=== PATIENT | male | born 2000 | race Caucasian/White ===

== ENCOUNTER 2024-04-12 10:29 | Emergency (ER) | payer OTHER, SELFPAY ==
[2024-04-12 10:47] VITALS: BP 140/70
[2024-04-12 11:47] VITALS: BMI 33.9
[2024-04-12] MEDS: TYLENOL 1000 MG PO (12:01)
[2024-04-12 12:21] LABS: % Basophils 0.4 % (0-2); % Eosinophils 0.4 % (0-6); % Immature Granulocytes 0.6 % (0-0.5); % Lymphocytes 10.9 % (20.5-51.1); % Monocytes 8.4 % (1.7-9.3); % Neutrophils 79.3 % (42.2-75.2); Absolute Basophils 0.1 10^3/uL (0-0.2); Absolute Eosinophils 0.1 10^3/uL (0-0.7); Absolute Immature Granulocytes 0.1 10^3/uL (0-0.05); Absolute Lymphocytes 1.9 10^3/uL (1.2-3.4); Absolute Monocytes 1.4 10^3/uL (0.1-0.6); Absolute Neutrophils 13.6 10^3/uL (1.4-6.5); Hematocrit 46.3 % (39.0-52.0); Hemoglobin 16.1 g/dL (13.0-18.0); Mean Corp Hgb Conc. 34.8 g/dL (33.0-37.0); Mean Corpuscular Hgb 30.8 pg (27.0-31.0); Mean Corpuscular Volume 88.7 fL (80.0-94.0); Nucleated Red Blood Cells % 0 % (-); Platelet Count 280 10^3/uL (130-400); Red Blood Cell Count 5.22 10^6/uL (4.70-6.10); Red Cell Dist. Width 12.4 % (11.5-14.5); White Blood Cell Count 17.1 10^3/uL (4.8-10.8)
[2024-04-12 12:46] LABS: ALT (SGPT) 28 U/L (0-50); AST (SGOT) 27 U/L (17-59); Albumin 5.1 g/dl (3.5-5.0); Alkaline Phosphatase 90 U/L (38-126); Blood Urea Nitrogen 12 mg/dl (9-20); Calcium 10.3 mg/dl (8.4-10.2); Carbon Dioxide 25 mmol/L (22-30); Chloride 101 mmol/L (98-107); Estimated Creatinine Clearance > 125 ml/min; Glucose 111 mg/dl (70-99); Sodium 137 mmol/L (135-145); Total Protein 8.3 g/dl (6.3-8.2); eGFR > 60.00
--- NOTE | 2024-04-12 12:56 | ED.GENMED ---
History of Present Illness
General
Chief Complaint: Headache
Time Seen by Provider: 04/12/24 12:08
History of Present Illness
History of Present Illness:
23-year-old previously healthy male presents to the emergency department for evaluation of persistent daily headaches that have been ongoing for the past week. He states he typically wakes up with no headache however the symptoms began shortly
after being awake. This seemed to resolve in the evening regardless of any medication administration. Saw his primary care physician yesterday and was prescribed corticosteroids pack however has not started this yet. He does report tearing and
blurry vision in the left eye associated with a headache. The headache is typically gradual in onset but very severe, currently rated 10 out of 10. Denies any nausea or vomiting. Denies any diplopia.
Review of Systems
Review of Systems
Allergies reviewed?: Yes
All Other Systems: ROS reviewed and negative except as documented in HPI and ROS
Phy Exam
Physical Exam
Physical Exam:
GEN: Well appearing, NAD, WDWN
HEENT: Mild injection of the left sclera/conjunctiva with clear discharge, right conjunctival normal ;oral mucosa moist, no scleral icterus, no nasal congestion
Cardiac: Regular rate and rhythm, no murmur
Lung: No respiratory distress, no tachypnea
MSK: No gross deformity or injuries
Skin: Good color, no pallor or jaundice, no rashes
Neuro: AO x3; CN II-XII grossly intact. (Patient notes diplopia with vertical or inferior gaze however no obvious EOM deficit is appreciated ) ;BUE strength 5/5 in all huber, sensation intact and symmetric. BLE strength 5/5 in all huber, sensation
intact and symmetric
Psych: Calm, cooperative
Course
Orders/Labs/Results
Orders:
Orders
04/12/24 11:55
Acetaminophen [Tylenol] 1,000 mg .ROUTE .STK-MED ONE
04/12/24 11:56
CT Head W/o Iv Contrast Urgent
Comment:
Reason For Exam: headache with left eye visual changes
04/12/24 11:57
Acetaminophen [Tylenol] 1,000 mg PO NOW STA
04/12/24 12:08
CMP [Comprehensive Metabolic Panel] Urgent
04/12/24 12:09
Complete Blood Count/With Diff Urgent
04/12/24 12:55
Magnesium Sulfate 2 Gram/50 ml [Magnesium Sulfate] 2 gram in 50 ml IV NOW
Metoclopramide [Reglan] 10 mg IV NOW STA
04/12/24 13:28
Ketorolac [Toradol] 15 mg IV NOW STA
04/12/24 14:03
Dexamethasone Sod Phosphate [Decadron] 10 mg IV NOW STA
Diphenhydramine [Benadryl] 12.5 mg IV NOW STA
Abnormal Lab Results
04/12/24 04/12/24
12:08 12:09
WBC 17.1 H 10^3/uL
(4.8-10.8)
MPV 11.0 H fL
(7.4-10.4)
Abs Immat Gran (auto) 0.1 H 10^3/uL
(0-0.05)
Absolute Neuts (auto) 13.6 H 10^3/uL
(1.4-6.5)
Absolute Monos (auto) 1.4 H 10^3/uL
(0.1-0.6)
Immature Gran % 0.6 H %
(0-0.5)
Neutrophils % 79.3 H %
(42.2-75.2)
Lymphocytes % 10.9 L %
(20.5-51.1)
Glucose 111 H mg/dl
(70-99)
Calcium 10.3 H mg/dl
(8.4-10.2)
Total Protein 8.3 H g/dl
(6.3-8.2)
Albumin 5.1 H g/dl
(3.5-5.0)
04/12/24 12:09
04/12/24 12:08
Vital Signs
Initial and Last Documented VS:
Initial Vital Signs
Temp Pulse Resp BP Pulse Ox
98.7 F 71 16 140/70 100
04/12/24 10:47 04/12/24 10:47 04/12/24 10:47 04/12/24 10:47 04/12/24 10:47
Last Documented Vital Signs
Temp Pulse Resp BP Pulse Ox
98.7 F 57 16 139/72 100
04/12/24 10:47 04/12/24 14:39 04/12/24 14:39 04/12/24 14:39 04/12/24 14:39
MDM/Problems Addressed
MDM/Problems Addressed:
Patient has no focal neurologic deficits on exam. Headache resolved after administration of a migraine cocktail. He reported resolution of diplopia on vertical gaze after pain was resolved. I did consider whether the patient would need vascular
imaging such as CT angiogram despite his lack of neurologic deficits however presence of severe ethmoid and frontal sinusitis on the ipsilateral side is likely the cause. I suspect the patient is reporting diplopia due to some degree of
inflammatory change around the extraocular muscles that resolved after anti-inflammatory ministration. He is already on steroids prescribed by his primary care physician and will add antibiotics, encourage strict emergency department return with
any worsening symptoms
*Critical Care Note
Total Time (30-74mins, 75-104mins- exclusive of procedures): Not Applicable
ED Attending Note
-
Portions of this chart may have been created with voice recognition software.� Occasional wrong word or��sound alike� substitutions may have occurred due to the inherent limitations of voice recognition software.
Discharge Plan
Departure
Patient Disposition: Home (Routine Discharge)
Date of Disposition: 04/12/24
Time of Disposition: 14:03
Patient with high blood pressure during this ER visit?: No
Discharge Problem:
Acute ethmoidal sinusitis
Instructions: Headache, Adult (DC)
Prescriptions:
New
amoxicillin-pot clavulanate 875-125 mg tablet
1 tab PO BID Qty: 14 0RF
Referrals:
Hadley Casillas MD [Family Provider] -
Activity Restrictions/Additional Instructions:
Take the steroids as prescribed by your primary doctor starting tomorrow
You may begin the antibiotic tonight
Return if symptoms worsen or you develop neck stiffness
Interventions
Interventions:
*Risk Screen - Suicide Last Done: 04/12/24 11:47
*General Assessment Last Done: 04/12/24 11:47
*Neglect/Abuse Screening Last Done: 04/12/24 11:47
ED- Fall Risk Assessment Last Done: 04/12/24 11:51
*ED COVID-19 Vaccine History Last Done: 04/12/24 11:47
*Nursing Disposition Last Done: 04/12/24 14:41
ED- Neurological Assessment Last Done: 04/12/24 11:47
Discharge Date and Time
Discharge Date/Time: 04/12/24 14:41
Print Language: PASHTO
[2024-04-12] MEDS: TORADOL 15 MG IV (13:33)
[2024-04-12] MEDS: REGLAN 10 MG IV (13:37)
[2024-04-12] MEDS: MAGNESIUM SULFATE 50 IV (13:39)
[2024-04-12] MEDS: BENADRYL 12.5 MG IV (14:12)
[2024-04-12] MEDS: DECADRON 10 MG IV (14:13)
[2024-04-12 14:39] VITALS: BP 139/72
== END 2024-04-12 14:41 | disposition home or self-care (01) ==
LOC: EMR 10:29
PROVIDERS: Nurse Practitioner; EMERGENCY PHYSICIAN Emergency Medicine; FAMILY PHYSICIAN Family Medicine
DX: J01.20 Acute ethmoidal sinusitis, unspecified (principal)
CPT/HCPCS: 99284; 96365; 96375 ×4; 70450; 80053; 85025